=== PATIENT | female | born 1985 | race Caucasian/White ===

== ENCOUNTER 2022-09-18 20:57 | Emergency (ER) | payer BC ==
[2022-09-18 21:07] VITALS: TEMP 98.4
[2022-09-19 00:36] LABS: Basophils # (A) 0.2 k/uL (0-0.2); Basophils % (A) 1 %; Eosinophils # (A) 0.4 k/uL (0-0.7); Eosinophils % (A) 2 %; HCT 40.9 % (34.0-46.0); HGB 14.1 gm/dL (11.4-16.0); Lymphocytes % (A) 18 %; MCH 30.9 pg (25.0-35.0); MCHC 34.5 g/dL (31.0-37.0); MCV 89.6 fL (80.0-100.0); Mean Platelet Volume 8.1; Monocytes % (A) 6 %; Neutrophils # (A) 12.1 k/uL (1.3-7.7); Neutrophils % (A) 72 %; Platelet Count 432 k/uL (150-450); RBC 4.56 m/uL (3.80-5.40); RDW 12.1 % (11.5-15.5); WBC 16.9 k/uL (3.8-10.6)
--- NOTE | 2022-09-19 00:51 | ED ---
Chest Pain HPI - General Chief Complaint: Chest Pain Stated Complaint: High BP, tightness in chest Time Seen by Provider: 09/19/22 00:01 Source: patient, family, RN notes reviewed Mode of arrival: ambulatory Limitations: no limitations - History of Present Illness Initial Comments: This is a 37-year-old female who presents to the emergency department for fatigue and chest discomfort. States over the last 2 weeks, she has felt very fatigued and rundown. She has also had intermittent pressure in her chest that she describes as "an animal sitting on my chest". Denies any associated shortness of breath or similar symptoms in the past. She has no coughing or other upper respiratory symptoms. Also denies any nausea or vomiting. She has no personal or family history of cardiac problems. Denies any fevers, chills, sore throat, cough, dyspnea, palpitations, abdominal pain, nausea, vomiting, diarrhea, back pain, or headaches. MD Complaint: chest pain Onset/Timin -: week(s) Pain Location: substernal Pain Radiation: none Quality: tightness, heaviness Consistency: intermittent Treatments Prior to Arrival: none - Related Data Allergies Allergy/AdvReac Type Severity Reaction Status Date / Time No Known Allergies Allergy Verified 09/18/22 21:07 Review of Systems ROS Statement: Those systems with pertinent positive or pertinent negative responses have been documented in the HPI. ROS Other: All systems not noted in ROS Statement are negative. EKG Findings - EKG Comments: EKG Findings:: Sinus rhythm. Normal axis. Ventricular rate 96 bpm, PA interval 182 ms, QRS duration 91 ms, QTC 389 ms. - EKG Results: EKG: interpreted by OSBALDO Past Medical History Past Medical History: No Reported History Past Surgical History: Adenoidectomy, Ear Surgery Past Psychological History: No Psychological Hx Reported Smoking Status: Never smoker Past Alcohol Use History: None Reported Past Drug Use History: None Reported General Exam Limitations: no limitations General appearance: alert, in no apparent distress Head exam: Present: atraumatic, normocephalic, normal inspection Respiratory exam: Present: normal lung sounds bilaterally. Absent: respiratory distress, wheezes, rales, rhonchi, stridor Cardiovascular Exam: Present: regular rate, normal rhythm, normal heart sounds. Absent: systolic murmur, diastolic murmur, rubs, gallop, clicks GI/Abdominal exam: Present: soft, normal bowel sounds. Absent: distended, tenderness, guarding, rebound, rigid Neurological exam: Present: alert, oriented X3, CN II-XII intact Psychiatric exam: Present: normal affect, normal mood Skin exam: Present: warm, dry, intact, normal color. Absent: rash Course Vital Signs 09/18/22 09/19/22 21:02 02:56 Temperature 98.4 F Pulse Rate 115 H 91 Respiratory 20 15 Rate Blood Pressure 170/94 151/88 O2 Sat by Pulse 100 99 Oximetry Chest Pain MDM - MDM This is a 37-year-old female who presents to the emergency department for chest pain. Lab work reveals leukocytosis and was otherwise nonactionable. Heterophile and Covid/influenza testing obtained as well, all of which were negative. She was unable to provide a urine sample prior to discharge. Chest x-ray obtained, and on my interpretation there are no localized consolidations or infiltrates. We do not have a clear cause for the patient's symptoms or the leukocytosis at this time. It is possible that she has underlying infection, such as a UTI, which could not be evaluated without a urinalysis. Given the description of chest heaviness and pressure, she was given information for cardiology follow-up to discuss if any additional testing is indicated. Return precautions reviewed in depth, the patient is instructed to return to the emergency department with any new, worsening, or concerning symptoms. Patient verbalized understanding. This case was discussed in detail with the attending ED physician. Presentation, findings, and treatment plan discussed in detail as well. Disposition Clinical Impression: Atypical chest pain Disposition: HOME SELF-CARE Instructions (If sedation given, give patient instructions): Noncardiac Chest Pain (ED) Additional Instructions: Return to the emergency department with any new, worsening, or concerning symptoms. Contact cardiology as listed below to discuss the possibility of any additional testing based on your symptoms. Follow up with your primary care provider in 1-2 days. Is patient prescribed a controlled substance at d/c from ED?: No Referrals: None,Stated [Primary Care Provider] - 1-2 days Zac Hernandes MD [STAFF PHYSICIAN] - 1-2 days
[2022-09-19 00:53] LABS: ALT 16 U/L (4-34); African American GFR (CKD) >90 (>60 ml/min/1.73 sqM); Amylase 56 U/L (30-110); Anion Gap 11 mmol/L; Blood Urea Nitrogen 12 mg/dL (7-17); Calcium 9.4 mg/dL (8.4-10.2); Carbon Dioxide 20 mmol/L (22-30); Chloride 107 mmol/L (98-107); Glucose 104 mg/dL (74-99); Lipase 107 U/L (23-300); Non-African American GFR(CKD) >90 (>60 ml/min/1.73 sqM); Sodium 138 mmol/L (137-145)
[2022-09-19 00:55] LABS: Partial Thromboplastin Time 26.1 sec (22.0-30.0); Prothrombin Time 10.6 sec (9.0-12.0)
[2022-09-19 01:20] LABS: AST 34 U/L (14-36); Albumin 4.7 g/dL (3.5-5.0); Alkaline Phosphatase 76 U/L (38-126); Magnesium 1.9 mg/dL (1.6-2.3); Potassium 4.9 mmol/L (3.5-5.1); Total Protein 8.2 g/dL (6.3-8.2)
--- NOTE | 2022-09-19 01:47 | XR ---
EXAMINATION TYPE: XR chest 2V DATE OF EXAM: 09/19/2022 COMPARISON: NONE HISTORY: TECHNIQUE: 2 view FINDINGS: Heart is normal. The lungs are clear of infiltrate. No heart failure. There are no hilar masses. Ther e are chest leads. Bony thorax is intact. IMPRESSION: Normal chest.
[2022-09-19 02:57] VITALS: BP 151/88; PULSE 91; RESP 15
== END 2022-09-19 02:57 | disposition home or self-care (01) ==
LOC: EC 20:57
DX: R07.89 Other chest pain (principal); Z20.822 Contact with and (suspected) exposure to COVID-19
CPT/HCPCS: 36415; 71046; 80053; 82150; 83690; 83735; 84484; 85025; 85379; 85610; 85730; 86308; 87502; 87635; 99285

== ENCOUNTER → 2023-12-23 | Outpatient (CLI) | payer BC | END | disposition home or self-care (01) | LOC: LABWHC1 12:19 | PROVIDERS: ATTEND Family Medicine | DX: K58.0 Irritable bowel syndrome with diarrhea (principal) | CPT/HCPCS: 36415 ==